=== PATIENT | female | born 1955 | race Caucasian/White ===

== ENCOUNTER 2017-03-27 08:50 | Emergency (ER) | payer OTHER ==
[~2017-03-27 08:50] MED LIST: ACETAMINOPHEN325 MG PO; CHEWABLE ASPIRI81 MG PO; CRESTOR10 MG PO; FERROUS SULFATE PO; NORVASC PO; PHENERGAN PO; PRILOSEC PO; PROTONIX PO; REGLAN PO; TYL325 PO; VIBRAMYCIN50 MG PO
== END 2017-03-27 10:00 | disposition home or self-care (01) ==
LOC: SED 08:50
DX: S51.811A Laceration without foreign body of right forearm, initial encounter (principal); Z23 Encounter for immunization; W27.8XXA Contact with other nonpowered hand tool, initial encounter; Y92.009 Unspecified place in unspecified non-institutional (private) residence as the place of occurrence of the external cause
CPT/HCPCS: 12002; 90471; 90715; 99283